=== PATIENT | male | born 1975 | race Two or more races ===

== ENCOUNTER 2019-04-18 07:00 | Day surgery (SDC) | payer OTHER ==
[2019-04-18] MEDS ORDERED: RECTICARE30 GM TOP (12:06)
[2019-04-18] MEDS ORDERED: DICLOFENAC SODI75 MG PO (12:06)
== END 2019-04-18 13:20 | disposition home or self-care (01) ==
LOC: AMB-ENDOS 07:00
DX: K62.89 Other specified diseases of anus and rectum (principal); K64.2 Third degree hemorrhoids; Z12.11 Encounter for screening for malignant neoplasm of colon